=== PATIENT | female | born 1975 ===

== ENCOUNTER 2021-05-22 22:28 | Emergency (ER) | payer OTHER ==
[~2021-05-22] VITALS: Ht 165.1 cm; Wt 77.5 kg
--- NOTE | 2021-05-23 00:15 | NUR ---
CC OF LEFT SIDE BEHIND EAR DOUGLAS/PAIN X 24 HRS AND NAUSEA. PT STATES IT IS PAINFUL BUT DOES NOT THINK IT IS A MIGRAINE. PT STATES SHE ISN'T ABLE TO SLEEP OR LIE ON THAT SIDE AND WEARING GLASSES AND A MASK ARE VERY PAINFUL. AT BEDSIDE
[2021-05-23 00:48] LABS: BASOPHILS % (AUTO) 1 % (0-1); EOSINOPHILS % (AUTO) 3 % (1-7); LYMPHOCYTES % (AUTO) 27 % (22-44); MEAN CORPUSCULAR HEMOGLOBIN 31.3 pg (27.0-34.8); MEAN CORPUSCULAR HGB CONC 34.7 g/dL (32.4-35.8); MONOCYTES % (AUTO) 9 % (2-9); NEUTROPHILS % (AUTO) 61 % (42-75); PLATELET COUNT 253 x10^3/uL (130-400); RED BLOOD COUNT 4.14 x10^6/uL (3.82-5.3); RED CELL DISTRIBUTION WIDTH 13.5 % (9.6-15.2)
[2021-05-23] MEDS ORDERED: DIPHENHYDRAMINE 50 MG/ML, 1ML ONE (00:53)
[2021-05-23] MEDS ORDERED: KETOROLAC 30 MG/1 ML ONE (00:53)
[2021-05-23] MEDS ORDERED: PROCHLORPERAZINE 5 MG/ML, 2ML ONE (00:53)
[2021-05-23 01:00] LABS: ALBUMIN 3.6 g/dL (3.4-5.0); ANION GAP 5 mmol/L (5-15); CALCIUM 8.4 mg/dL (8.5-10.1); CHLORIDE 112 mmol/L (98-107); CREATININE 1.55 mg/dL (0.55-1.02)
[2021-05-23] MEDS ORDERED: DIPHENHYDRAMINE 50 MG/ML, 1ML IVPush ONE (01:00)
[2021-05-23] MEDS ORDERED: KETOROLAC 30 MG/1 ML IVPush ONE (01:00)
[2021-05-23] MEDS ORDERED: PROCHLORPERAZINE 5 MG/ML, 2ML IVPush ONE (01:00)
--- NOTE | 2021-05-23 01:12 | NUR ---
pt to ct
--- NOTE | 2021-05-23 02:26 | NUR ---
PT DROWSY, AWKENS EASILY. STATES PAIN IS BETTER BUT NOT FULLY GONE. UPDATED ON POC AND AWAITING CT READ.
[2021-05-23 02:51] VITALS: BP 96/46
== END 2021-05-23 02:59 | disposition home or self-care (01) ==
LOC: ED 22:58
DX: H92.02 Otalgia, left ear (principal); R51.9 Headache, unspecified; R11.0 Nausea
CPT/HCPCS: 36415; 70450; 80048; 82040; 84703; 85025; 96374; 96375; 99284; J0780; J1200; J1885